=== PATIENT | male | born 1960 | race Caucasian/White ===

== ENCOUNTER 2020-04-25 22:46 | Emergency (ER) | payer BC ==
[~2020-04-25] VITALS: Ht 182.9 cm; Wt 110.8 kg
[2020-04-25 22:56] VITALS: BP 155/98
--- NOTE | 2020-04-25 23:22 | PHYS DOC ---
Past History Past Medical History: Diabetes, High Cholesterol, Hypertension, Kidney Stones Past Surgical History: Cholecystectomy Alcohol Use: Rarely General Adult EDM: Chief Complaint: FLANK PAIN HPI: HPI: 60-year-old male presents with left flank pain. The patient has had intermittent pain for last 8 days. He has a history of kidney stones. The fir st few days he had bright red blood but that is resolved. He continues to have urinary frequency and a cramping pain in the left flank. He has been taking Tylenol and ibuprofen without relief. Tonight he was not able go to sleep and just decided to come in for evaluation. He denies fever or chills. He has no other complaints at this time. Review of Systems: Review of Systems: Constitutional: Denies fever or chills Eyes: Denies change in visual acuity HENT: Denies nasal congestion or sore throat Respiratory: Denies cough or shortness of breath Cardiovascular: Denies chest pain or edema GI: Denies abdominal pain, nausea, vomiting, bloody stools or diarrhea : Increased urinary frequency, left flank pain Musculoskeletal: Denies back pain or joint pain Integument: Denies rash Neurologic: Denies headache, focal weakness or sensory changes Endocrine: Denies polyuria or polydipsia Lymphatic: Denies swollen glands Psychiatric: Denies depression or anxiety Heart Score: Risk Factors: Risk Factors: DM, Current or recent (<one month) smoker, HTN, HLP, family history of CAD, obesity. Risk Scores: Score 0 - 3: 2.5% MACE over next 6 weeks - Discharge Home Score 4 - 6: 20.3% MACE over next 6 weeks - Admit for Clinical Observation Score 7 - 10: 72.7% MACE over next 6 weeks - Early Invasive Strategies Current Medications: Current Meds: Current Medications Medications (Trade) Dose Ordered Sig/Neftali Start Time Stop Time Status Last Admin Dose Admin Sodium Chloride 1,000 ml @ 1,000 mls/hr 1X ONCE 04/25/20 23:15 04/26/20 00:14 UNV Physical Exam: PE: Constitutional: Well developed, well nourished, no acute distress, non-toxic a ppearance. [] HENT: Normocephalic, atraumatic, bilateral external ears normal, oropharynx moist, no oral exudates, nose normal. [] Eyes: PERRLA, EOMI, conjunctiva normal, no discharge. [] Neck: Normal range of motion, no tenderness, supple, no stridor. [] Cardiovascular: Heart rate regular rhythm, no murmur [] Lungs & Thorax: Bilateral breath sounds clear to auscultation [] Abdomen: Bowel sounds normal, soft, no tenderness, no masses, no pulsatile masses. [] Skin: Warm, dry, no erythema, no rash. [] Back: No tenderness, mild left CVA tenderness. [] Extremities: No tenderness, no cyanosis, no clubbing, ROM intact, no edema. [] Neurologic: Alert and oriented X 3, normal motor function, normal sensory function, no focal deficits noted. [] Psychologic: Affect normal, judgement normal, mood normal. [] Current Patient Data: Vital Signs: Vital Signs Date Time Temp Pulse Resp B/P (MAP) Pulse Ox O2 Delivery O2 Flow Rate FiO2 04/25/20 22:56 97.8 106 18 155/98 (117) 99 Room Air EKG: EKG: [] Radiology/Procedures: Radiology/Procedures: [] Impressions: CT abdomen and pelvis without contrast PQRS statement: CT scans at this facility use dose reduction including either automated exposure control, iterative reconstructions, and /or weight based radiation dosing via mA and kV modification when appropriate to reduce radiation dose to as low as reasonably achievable. HISTORY: Severe left flank pain. History kidney stones. Abdomen findings: Bilateral L5 spondylolysis. Disc bulges lower lumbar spine. Lung bases unremarkable. Bilateral nephrolithiasis. Mild left renal hydronephrosis renal pelvis diameter 1.5 cm associated with proximal ureteral 5 mm obstructing calculus with an adjacent 1 mm calculus more superiorly within the ureter. There is mild left perinephric and periureteral edema. Left renal subcentimeter nodule density -3 units consistent with an adenoma. Pancreas, right adrenal gland, spleen and liver are unremarkable. Gallbladder is absent. Moderate volume of stool within the colon. No bowel obstruction or inflammatory change. Sigmoid diverticulosis. No abdominal free fluid. Lower abdominal wall soft tissue edema. Pelvis findings: No bladder calculi. Prostate, rectum and bones are unremarkable. IMPRESSION: 1. Mild left renal hydronephrosis associated with proximal ureteral 5 mm obstructing calculus with a smaller adjacent 1 mm calculus. 2. Bilateral nephrolithiasis. 3. Other incidental findings as described above. Electronically signed by: Louis Quevedo MD (04/25/2020 11:54 PM) [facility] DICTATED AND SIGNED BY: LOUIS QUEVEDO MD DATE: 04/25/20 0963 CC: IWLY JOHNSON DO; KEVEN ORNELAS ~ Course & Med Decision Making: Course & Med Decision Making Pertinent Labs and Imaging studies reviewed. (See chart for details) The patient has bilateral nephrolithiasis. He has a 5 mm obstructing stone on the left that is proximal. The patient does not appear to have a urinary tract infection. His creatinine is 2.3 and a white count of 15. I have given him 4 mg of morphine and 4 mg of Zofran for his discomfort. The patient's urologist is in the [facility] system. We will work on transferring him there. The patient has been accepted for transfer to [facility]. Dr. Whittaker is the accepting physician. He will go by ambulance. [] Dragon Disclaimer: Dragseamus Disclaimer: This electronic medical record was generated, in whole or in part, using a voice recognition dictation system. Departure Departure: Impression: Primary Impression: Hydronephrosis with renal and ureteral calculous obstruction Disposition: [facility]FER [facility] HOSP Condition: STABLE Referrals: KEVEN ORNELAS (PCP) WILY JOHNSON DO Apr 25, 2020 23:22
[2020-04-25] MEDS ORDERED: IV NORMAL SALINE 1,000ML 1,000 ML IV ONE (23:30)
[2020-04-25] MEDS ORDERED: MORPHINE SULFATE 4 MG/ML DISP.SYRIN. ONE (23:41)
[2020-04-25 23:45] LABS: BASO # 0.2 x10^3/uL (0.0-0.2); BASO % 1 % (0-3); EOS # 0.3 x10^3/uL (0.0-0.7); EOS % 2 % (0-3); HEMATOCRIT 47.5 % (39.0-53.0); HEMOGLOBIN 15.5 g/dL (13.0-17.5); LYMPH # 3.3 x10^3/uL (1.0-4.8); LYMPH % 21 % (24-48); MEAN CORPUSCULAR HEMOGLOBIN 30 pg (25-35); MEAN CORPUSCULAR HGB CONC 33 g/dL (31-37); MEAN CORPUSCULAR VOLUME 93 fL (79-100); MONO # 1.5 x10^3/uL (0.0-1.1); MONO % 10 % (0-9); NEUT # 10.1 x10^3uL (1.8-7.7); NEUT % 66 % (31-73); PLATELET COUNT 301 x10^3/uL (140-400); RED BLOOD COUNT 5.09 x10^6/uL (4.30-5.70); WHITE BLOOD COUNT 15.3 x10^3/uL (4.0-11.0)
[2020-04-25] MEDS ORDERED: ONDANSETRON PF 4 MG/2 ML VIAL. IVP ONE (23:45)
[2020-04-25] MEDS ORDERED: MORPHINE SULFATE 4 MG/ML DISP.SYRIN. IV ONE (23:45)
[2020-04-25 23:52] LABS: CALCIUM 9.8 mg/dL (8.5-10.1); CREATININE 2.3 mg/dL (0.7-1.3); POTASSIUM 3.4 mmol/L (3.5-5.1)
[2020-04-25 23:53] LABS: BACTERIA,URINE 0 /HPF (0-FEW); BILIRUBIN,URINE NEG (NEG); CLARITY,URINE CLEAR; COLOR,URINE YELLOW; GLUCOSE,URINE >=1000 mg/dL (NEG); NITRITE,URINE NEG (NEG); RBC,URINE 0 /HPF (0-2); SQUAMOUS EPITHELIAL CELL,UR OCC /LPF; UROBILINOGEN,URINE 0.2 mg/dL (0.2 mg/dL); WBC,URINE OCC /HPF (0-4)
--- NOTE | 2020-04-25 23:57 | RAD ---
CT abdomen and pelvis without contrast PQRS statement: CT scans at this facility use dose reduction including either automated exposure control, iterative reconstructions, and /or weight based radiation dosing via mA and kV modification when appropriate to reduce radiation dose to as low as reasonably achievable. HISTORY: Severe left flank pain. History kidney stones. Abdomen findings: Bilateral L5 spondylolysis. Disc bulges lower lumbar spine. Lung bases unremarkable. Bilateral nephrolithiasis. Mild left renal hydronephrosis renal pelvis diameter 1.5 cm associated with proximal ureteral 5 mm obstructing calculus with an adjacent 1 mm calculus more superiorly within the ureter. There is mild left perinephric and periureteral edema. Left renal subcentimeter nodule density -3 units consistent with an adenoma. Pancreas, right adrenal gland, spleen and liver are unremarkable. Gallbladder is absent. Moderate volume of stool within the colon. No bowel obstruction or inflammatory change. Sigmoid diverticulosis. No abdominal free fluid. Lower abdominal wall soft tissue edema. Pelvis findings: No bladder calculi. Prostate, rectum and bones are unremarkable. IMPRESSION: 1. Mild left renal hydronephrosis associated with proximal ureteral 5 mm obstructing calculus with a smaller adjacent 1 mm calculus. 2. Bilateral nephrolithiasis. 3. Other incidental findings as described above. Electronically signed by: Spencer Quevedo MD (04/25/2020 11:54 PM) [facility]
[2020-04-25 23:58] LABS: ALBUMIN 3.6 g/dL (3.4-5.0); ALBUMIN/GLOBULIN RATIO 0.8 (1.0-1.7); TOTAL BILIRUBIN 0.5 mg/dL (0.2-1.0); TOTAL PROTEIN 8.3 g/dL (6.4-8.2)
[2020-04-26 00:09] LABS: % BANDS 4 % (0-9); % EOS 5 % (0-5); % LYMPHS 19 % (24-48); % MONOS 9 % (0-10); % SEGS 63 % (35-66); PLT ESTIMATE ADEQUATE (ADEQUATE)
[2020-04-26] MEDS ORDERED: HYDROmorphone PF 1 MG/ML DISP.SYRIN IVP ONE (01:15)
== END 2020-04-26 03:47 | disposition short-term general hospital (02) ==
LOC: ER 22:46
DX: N13.2 Hydronephrosis with renal and ureteral calculous obstruction (principal); E11.9 Type 2 diabetes mellitus without complications; I10 Essential (primary) hypertension; Z87.442 Personal history of urinary calculi; Z90.49 Acquired absence of other specified parts of digestive tract
CPT/HCPCS: 36415; 74176; 80053; 81001; 85007; 85025; 96374; 96375; 99285; J1170; J2270; J2405; J7030

== ENCOUNTER 2021-04-05 19:38 | Emergency (ER) | payer BC ==
[~2021-04-05] VITALS: Ht 182.9 cm; Wt 113.2 kg
--- NOTE | 2021-04-05 20:28 | PHYS DOC ---
Past History Past Medical History: Diabetes, High Cholesterol, Hypertension, Kidney Stones (XIOMY PEPE) Past Surgical History: Appendectomy, Cholecystectomy (XIOMY PEPE) Alcohol Use: Rarely (XIOMY PEPE) General Adult EDM: Chief Complaint: FLANK PAIN Problems: (1) Flank pain (XIOMY PEPE) HPI: HPI: Patient is a 61 year old male with a history of frequent kidney stone who presents with left-sided flank pain for the past 2 to 3 weeks. Patient states that he has had kidney stones about 5 times in the past 6 years, and his current symptoms are very similar. He states that his pain is constant 9 out of 10, and he has difficulty getting comfortable sitting or standing. He states that typically his pain does not get this bad until the kidney stone moves and he ex periences gross hematuria, but denies gross hematuria at this time. He reports that in his lab work done last week, that there was trace blood in his urine. Patient denies N/V/D, abdominal pain, dysuria. Patient has no other complaints at this time. (XIOMY PEPE) Review of Systems: Review of Systems: Constitutional: Denies fever or chills Respiratory: Denies cough or shortness of breath Cardiovascular: Denies chest pain or edema GI: See HPI : See HPI Musculoskeletal: Denies paraspinal back pain or joint pain. (XIOMY PEPE) Allergies: Allergies: Allergies Coded Allergies Type Severity Reaction Last Updated Verified Penicillins Allergy Unknown 04/25/20 Yes Sulfa (Sulfonamide Antibiotics) Allergy Unknown 04/25/20 Yes afatinib Allergy Unknown 04/25/20 Yes (XIOMY PEPE) Physical Exam: PE: Constitutional: Patient is pacing, sitting and then standing, appears in pain. Well developed, well nourished, non-toxic appearance. Cardiovascular: Heart rate regular rhythm, no murmur. Lungs & Thorax: Bilateral breath sounds clear to auscultation. Abdomen: Bowel sounds normal, soft, no tenderness, no masses, no pulsatile jimmy s. Skin: Warm, dry, no erythema, no rash. Back: CVA tenderness present on left. No stepoffs, no bony or paraspinal tenderness. (XIOMY PEPE) Current Patient Data: Labs: Laboratory Tests Test 04/05/21 20:33 Urine Collection Type Unknown Urine Color Yellow Urine Clarity Cloudy Urine pH 5.5 Urine Specific [place] 1.020 Urine Protein Neg (NEG-TRACE) Urine Glucose (UA) 500 mg/dL (NEG) Urine Ketones (Stick) Trace mg/dL (NEG) Urine Blood Large (NEG) Urine Nitrite Neg (NEG) Urine Bilirubin Neg (NEG) Urine Urobilinogen Dipstick 0.2 mg/dL (0.2 mg/dL) Urine Leukocyte Esterase Neg (NEG) Urine RBC 20-40 /HPF (0-2) Urine WBC Rare /HPF (0-4) Urine Squamous Epithelial Cells Occ /LPF Urine Bacteria Few /HPF (0-FEW) Urine Yeast Present /HPF Vital Signs: Vital Signs Date Time Temp Pulse Resp B/P (MAP) Pulse Ox O2 Delivery O2 Flow Rate FiO2 04/05/21 19:47 98.6 94 16 157/101 (119) 98 Room Air (XIOMY PEPE) Radiology/Procedures: Radiology/Procedures: PROCEDURE: CT ABDOMEN PELVIS WO CONTRAST CT abdomen and pelvis without contrast PQRS statement: CT scans at this facility use dose reduction including either automated exposure control, iterative reconstructions, and /or weight based radiation dosing via mA and kV modification when appropriate to reduce radiation dose to as low as reasonably achievable. HISTORY: Lower abdominal pain and flank pain. Abdomen findings: Lung bases unremarkable. Lumbar disc bulges, there is bi lateral L5 spondylolysis. Left greater than right perinephric edema, there is also left renal mild hydronephrosis renal pelvis diameter is 1.2 cm leading to a proximal ureteral obstructing 4 mm calculus. Left adrenal subcentimeter nodule density of -3 units typical of an adenoma. Right adrenal, pancreas, spleen, liver unremarkable. Gallbladder absent. Sigmoid colonic diverticulosis. No obstruction or inflammation the GI tract. Mild calcified likely aorta and iliac arteries. No abdominal free fluid. Pelvis findings: Prostate mildly enlarged. Pelvic calcifications consistent with phleboliths. No bladder calculi. Rectum and bones are unremarkable. No pelvic fluid. IMPRESSION: 1. Mild left renal hydronephrosis and perinephric edema associated with a 4 mm proximal ureteral obstructing calculus. 2. Other incidental findings as described above. Electronically signed by: Spencer Quevedo MD (04/05/2021 9:00 PM) [facility] (XIOMY PEPE) Heart Score: C/O Chest Pain: No (XIOMY PEPE) Course & Med Decision Making: Course & Med Decision Making Pertinent Labs and Imaging studies reviewed. (See chart for details) Patient is familiar with renal colic and describes his pain as such today. Abdomen pelvis CT scan without contrast will be ordered. CT shows a 4 mm left-sided renal calculus with obstruction and hydronephrosis. UA also shows infection. Patient is not established with a pipe fitter helper at this time, but he used to see someone at [facility]. Urology on- call for [facility] will be consulted regarding patient admission. A call was placed out at 5. [facility] transfer team called back at 2150 with request for images as well as a face sheet. Dr. Guerrero will call back as soon as he's available. Patient care was transferred to Dr. Wily Johnson at 2200. (XIOMY PEPE) Course & Med Decision Making The patient's creatinine is elevated at 1.8. His urinalysis does not look like it is infected. He does have an elevated white count of 14. I will not treat with antibiotics at this time. I will give him a liter normal saline Zofran. We have called several hospitals to find a bed in a urologist to help treat the patient. Got a bed at [facility]. Dr. Mills has accepted the patient for transfer. He will go by ambulance. (WILY JOHNSON DO) [place] Disclaimer: Gloria Disclaimer: This electronic medical record was generated, in whole or in part, using a voice recognition dictation system. (XIOMY PEPE) Departure Departure: Impression: Primary Impression: Hydronephrosis with renal and ureteral calculus obstruction Disposition: 02 [facility]ORT TERM [facility]OSP[facility] Condition: STABLE Referrals: KEVEN ORNELAS (PCP) XIOMY PEPE Apr 05, 2021 20:28 WILY JOHNSON DO Apr 06, 2021 01:30
[2021-04-05] MEDS ORDERED: KETOROLAC 15 MG/ML VIAL. IM ONE (20:30)
--- NOTE | 2021-04-05 21:02 | RAD ---
CT abdomen and pelvis without contrast PQRS statement: CT scans at this facility use dose reduction including either automated exposure cont rol, iterative reconstructions, and /or weight based radiation dosing via mA and kV modification when appropriate to reduce radiation dose to as low as reasonably achievable. HISTORY: Lower abdominal pain and flank pain. Abdomen findings: Lung bases unremarkable. Lumbar disc bulges, there is bilateral L5 spondylolysis. L eft greater than right perinephric edema, there is also left renal mild hydronephrosis renal pelvis d iameter is 1.2 cm leading to a proximal ureteral obstructing 4 mm calculus. Left adrenal subcentimete r nodule density of -3 units typical of an adenoma. Right adrenal, pancreas, spleen, liver unremarkab le. Gallbladder absent. Sigmoid colonic diverticulosis. No obstruction or inflammation the GI tract. Mild calcified likely aorta and iliac arteries. No abdominal free fluid. Pelvis findings: Prostate mildly enlarged. Pelvic calcifications consistent with phleboliths. No blad jose calculi. Rectum and bones are unremarkable. No pelvic fluid. IMPRESSION: 1. Mild left renal hydronephrosis and perinephric edema associated with a 4 mm proximal ureteral obst ructing calculus. 2. Other incidental findings as described above. Electronically signed by: Spencer Quevedo MD (04/05/2021 9:00 PM) [facility]
[2021-04-05 21:16] LABS: BACTERIA,URINE FEW /HPF (0-FEW); BILIRUBIN,URINE NEG (NEG); CLARITY,URINE CLOUDY; COLOR,URINE YELLOW; GLUCOSE,URINE 500 mg/dL (NEG); NITRITE,URINE NEG (NEG); RBC,URINE 20-40 /HPF (0-2); SQUAMOUS EPITHELIAL CELL,UR OCC /LPF; UROBILINOGEN,URINE 0.2 mg/dL (0.2 mg/dL); WBC,URINE RARE /HPF (0-4); YEAST,URINE PRESENT /HPF
[2021-04-05 23:28] LABS: BASO # 0.1 x10^3/uL (0.0-0.2); BASO % 0 % (0-3); EOS # 0.6 x10^3/uL (0.0-0.7); EOS % 4 % (0-3); HEMATOCRIT 42.9 % (39.0-53.0); HEMOGLOBIN 14.4 g/dL (13.0-17.5); LYMPH # 2.5 x10^3/uL (1.0-4.8); LYMPH % 17 % (24-48); MEAN CORPUSCULAR HEMOGLOBIN 31 pg (25-35); MEAN CORPUSCULAR HGB CONC 34 g/dL (31-37); MEAN CORPUSCULAR VOLUME 92 fL (79-100); MONO % 7 % (0-9); NEUT # 10.5 x10^3uL (1.8-7.7); NEUT % 72 % (31-73); PLATELET COUNT 231 x10^3/uL (140-400); RED BLOOD COUNT 4.67 x10^6/uL (4.30-5.70); RED CELL DISTRIBUTION WIDTH 13.8 % (11.5-14.5); WHITE BLOOD COUNT 14.6 x10^3/uL (4.0-11.0)
[2021-04-05 23:39] LABS: CALCIUM 9.1 mg/dL (8.5-10.1); CREATININE 1.8 mg/dL (0.7-1.3); GFR 38.3; POTASSIUM 3.1 mmol/L (3.5-5.1)
[2021-04-05 23:51] LABS: ALBUMIN 3.4 g/dL (3.4-5.0); ALBUMIN/GLOBULIN RATIO 1.1 (1.0-1.7); TOTAL BILIRUBIN 0.3 mg/dL (0.2-1.0); TOTAL PROTEIN 6.6 g/dL (6.4-8.2)
[2021-04-06] MEDS ORDERED: IV NORMAL SALINE 1,000ML 1,000 ML IV ONE (00:30)
[2021-04-06] MEDS ORDERED: ONDANSETRON PF 4 MG/2 ML VIAL. IVP ONE (00:30)
[2021-04-06] MEDS ORDERED: MORPHINE SULFATE 2 MG/ML DISP.SYRIN. IV ONE (00:30)
[2021-04-06 02:29] VITALS: BP 132/84
--- NOTE | 2021-04-07 15:02 | NUR ---
IP: Informed pt of negative COVID test. pt verbalized understanding.
== END 2021-04-06 02:53 | disposition short-term general hospital (02) ==
LOC: ER 19:38
DX: N13.2 Hydronephrosis with renal and ureteral calculous obstruction (principal); E11.9 Type 2 diabetes mellitus without complications; E78.5 Hyperlipidemia, unspecified; I10 Essential (primary) hypertension; Z90.49 Acquired absence of other specified parts of digestive tract; Z88.2 Allergy status to sulfonamides; Z88.0 Allergy status to penicillin; Z20.822 Contact with and (suspected) exposure to COVID-19
CPT/HCPCS: 36415; 74176; 80053; 81001; 85025; 87426; 96361; 96372; 96374; 96375; 99285; C9803; J1885; J2270; J2405; J7030; U0003